=== PATIENT | female | born 1965 | race Caucasian/White ===

== ENCOUNTER 2018-10-26 11:35 | Emergency (ER) | payer BC, OTHER ==
[2018-10-26 11:48] VITALS: BP 112/58
--- NOTE | 2018-10-26 12:07 | EDM.PDOC ---
ED HPI GENERAL MEDICAL PROBLEM - General Chief Complaint: General Stated Complaint: fall, wrist pain Time Seen by Provider: 10/26/18 11:55 Source of Information: Reports: Patient History Limitations: Reports: No Limitations - History of Present Illness INITIAL COMMENTS - FREE TEXT/NARRATIVE: patient is a 53-year-old who works at [employer] tripped on a rug in the cafeteria eating her right side of head on the ankle of a column right wrist and right knee Onset: Today Duration: Hour(s):, Improving Location: Reports: Head, Upper Extremity, Right, Lower Extremity, Right Quality: Reports: Ache Severity: Mild Worsens with: Reports: Movement Context: Reports: Trauma Associated Symptoms: Reports: No Other Symptoms 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 Right Wrist Pain Score (Numeric/FACES): 4 - Related Data Allergies Allergy/AdvReac Type Severity Reaction Status Date / Time cyclosporine [From Restasis] Allergy Cannot Verified 10/26/18 11:40 Remember erythromycin base Allergy UNKNOWN Verified 10/26/18 11:40 lifitegrast [From Xiidra] Allergy Cannot Verified 10/26/18 11:40 Remember Penicillins Allergy UNKNOWN Verified 10/26/18 11:40 nuts Allergy Anaphylactic Uncoded 10/26/18 11:40 Shock Home Meds: Home Meds Aspirin [Halfprin] 81 mg PO BEDTIME 09/02/14 [History] Simvastatin 1 tab PO BEDTIME 09/02/14 [History] busPIRone [Buspar] 10 mg PO BID 09/02/14 [History] Fish Oil/[place]amo-3 Fatty Acids [Fish Oil 1,000 MG] 1,000 mg PO DAILY 08/04/16 [ History] Lactobacillus Combo No.10 [Probiotic] 2 tab PO DAILY 08/04/16 [History] Albuterol Sulfate 2.5 mg NEB Q4H PRN 08/17/18 [History] Albuterol Sulfate [Proair Hfa] 1 - 2 puff INH Q4H PRN 08/17/18 [History] EPINEPHrine [Epinephrine] 0.3 mg IM ASDIRECTED 08/17/18 [History] Fluticasone Propionate [Flonase] 1 spray NASBOTH BID PRN 08/17/18 [History] Gabapentin [Neurontin] 100 mg PO BEDTIME 08/17/18 [History] Lidocaine 5% 1 applic TOP ASDIRECTED 08/17/18 [History] Lisinopril 20 mg PO DAILY 08/17/18 [History] Moexipril HCl [Moexipril] 15 mg PO DAILY 08/17/18 [History] glipiZIDE [Glipizide ER] 5 mg PO DAILY 08/17/18 [History] hydroCHLOROthiazide [Hydrochlorothiazide] 50 mg PO DAILY 08/17/18 [History] metFORMIN HCl [Metformin HCl] 1,000 mg PO BID 08/17/18 [History] Cranberry 400 mg PO BID 08/18/18 [History] Lysine 1,000 mg PO DAILY 08/18/18 [History] Melatonin [Vitajoy] 5 mg PO BEDTIME 08/18/18 [History] Ubidecarenone [Coq-10] 100 mg PO DAILY 08/18/18 [History] Non-Formulary Medication [NF Drug] 2 each PO DAILY 10/26/18 [History] Past Medical History HEENT History: Reports: Allergic Rhinitis, Impaired Vision Cardiovascular History: Reports: High Cholesterol, Hypertension Respiratory History: Reports: None Gastrointestinal History: Reports: Chronic Diarrhea, Colon Polyp Genitourinary History: Reports: None 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: Endometriosis, Musculoskeletal History: Reports: Arthritis, Back Pain, Chronic, Osteoarthritis Neurological History: Reports: None Psychiatric History: Reports: Anxiety Endocrine/Metabolic History: Reports: Diabetes, Gestational, Diabetes, Type II Hematologic History: Reports: None Immunologic History: Reports: None Oncologic (Cancer) History: Reports: None Dermatologic History: Reports: None - Infectious Disease History Infectious Disease History: Reports: Chicken Pox, Influenza, Measles, Mumps - Past Surgical History HEENT Surgical History: Reports: Adenoidectomy, Oral Surgery, Polypectomy, Tonsillectomy Cardiovascular Surgical History: Reports: None Respiratory Surgical History: Reports: None GI Surgical History: Reports: Colonoscopy, Polypectomy Female Surgical History: Reports: Section, Hysterectomy Neurological Surgical History: Reports: None Oncologic Surgical History: Reports: None Dermatological Surgical History: Reports: None Social & Family History - Family History Cardiac: Reports: High Cholesterol, Hypertension, HI Psychiatric: Reports: Anxiety Endocrine/Metabolic: Reports: Diabetes, type II Oncologic: Reports: Lung - Caffeine Use Caffeine Use: Reports: Soda, Tea Other Caffeine Use: coke zero ED ROS GENERAL - Review of Systems Review Of Systems: See Below ED EXAM, GENERAL - Physical Exam Exam: See Below Exam Limited By: No Limitations General Appearance: Alert, WD/WN, No Apparent Distress Ears: Normal External Exam, Normal Canal, Hearing Grossly Normal, Normal TMs Ear Exam: Bilateral Ear: Auricle Normal, Canal Normal, TM normal Nose: Normal Inspection, Normal Mucosa, No Blood Throat/Mouth: Normal Inspection, Normal Lips, Normal Teeth, Normal Gums, Normal Oropharynx, Normal Voice, No Airway Compromise Head: Atraumatic, Normocephalic Neck: Normal Inspection, Supple, Non-Tender, Full Range of Motion Respiratory/Chest: No Respiratory Distress, Lungs Clear, Normal Breath Sounds, No Accessory Muscle Use, Chest Non-Tender Cardiovascular: Normal Peripheral Pulses, Regular Rate, Rhythm, No Edema, No Gallop, No JVD, No Murmur, No Rub GI/Abdominal: Normal Bowel Sounds Back Exam: Normal Inspection Extremities: Limited Range of Motion, Other (right wrist x-rays revealed arthritis but no fractures at this time right knee has full range of motion weightbearing no edema noticed or no ecchymotic area noted) Neurological: Alert, Oriented, CN II-XII Intact, Normal Cognition, Normal Gait, Normal Reflexes, No Motor/Sensory Deficits Psychiatric: Normal Affect, Normal Mood Skin Exam: Warm, Dry, Intact, Normal Color, No Rash Lymphatic: No Adenopathy Course - Vital Signs Last Recorded V/S: Last Vital Signs Temp 98.1 F 10/26/18 11:43 Pulse 71 10/26/18 11:43 Resp 16 10/26/18 11:43 BP 112/58 L 10/26/18 11:43 Pulse Ox 95 10/26/18 11:43 - Orders/Labs/Meds Orders: Active Orders 24 hr Category Date Time Status Wrist Comp Min 3V Rt [CR] Stat Exams 10/26/18 11:40 Taken Departure - Departure Time of Disposition: 12:07 Disposition: Home, Self-Care 01 Condition: Good Clinical Impression: Right wrist sprain Qualifiers: Encounter type: initial encounter Qualified Code(s): S63.501A - Unspecified sprain of right wrist, initial encounter - Discharge Information *PRESCRIPTION DRUG MONITORING PROGRAM REVIEWED*: No *COPY OF PRESCRIPTION DRUG MONITORING REPORT IN PATIENT ANANDA: No Instructions: Wrist Sprain, Adult Referrals: Nona Louise PA-C [Primary Care Provider] - Care Plan Goals: patient has a right wrist sprain we will go ahead and place her on cock-up splint and release her home she may return to work tomorrow if feeling better. - My Orders Last 24 Hours: My Active Orders 10/26/18 11:40 Wrist Comp Min 3V Rt [CR] Stat - Assessment/Plan Last 24 Hours: My Active Orders 10/26/18 11:40 Wrist Comp Min 3V Rt [CR] Stat
== END 2018-10-26 12:40 | disposition home or self-care (01) ==
LOC: LL.ED 11:35
DX: S63.501A Unspecified sprain of right wrist, initial encounter (principal); E11.9 Type 2 diabetes mellitus without complications; I10 Essential (primary) hypertension; E78.00 Pure hypercholesterolemia, unspecified; Z79.82 Long term (current) use of aspirin; Z79.899 Other long term (current) drug therapy; Z88.0 Allergy status to penicillin; Z91.018 Allergy to other foods; Z88.8 Allergy status to other drugs, medicaments and biological substances; Z88.1 Allergy status to other antibiotic agents; W20.8XXA Other cause of strike by thrown, projected or falling object, initial encounter; Y99.0 Civilian activity done for income or pay
CPT/HCPCS: 73110-RT; 99283-25